=== PATIENT | male | born 1940 | race Caucasian/White ===

== ENCOUNTER 2017-08-12 01:37 | Emergency (ER) | payer MEDICARE, OTHER ==
[~2017-08-12] VITALS: Ht 175.3 cm; Wt 90.7 kg
[2017-08-12] MEDS ORDERED: ASPI81TA31 PO (01:47)
--- NOTE | 2017-08-12 01:51 | NUR ---
PT BIB [facility], PATIENT TAKES PRESCRPTION MEDICATION, AWAITING LIST FROM FAMILY MEMBER.
--- NOTE | 2017-08-12 02:02 | NUR ---
DR NITHIN MONROY MD AT BEDSIDE FOR MSE.
--- NOTE | 2017-08-12 02:10 | NUR ---
PT TAKEN TO CT VIA GURNEY. NO DISTRESS NOTED. ACCOMPANIED BY .
[2017-08-12] MEDS ORDERED: NEOMY/BACITRA/POLYMYXIN B OINT UD PACKET TP ONE ×2 (02:15)
--- NOTE | 2017-08-12 02:15 | NUR ---
LAB AT BEDSIDE FOR BLOOD DRAW.
[2017-08-12] MEDS ORDERED: LIDOCAINE 1%-EPI 1:100,000 20 ML VIAL TP ONE (02:45)
[2017-08-12 02:48] LABS: BASOPHILS # (AUTO) 0.1 K/uL (0.0-8.0); BASOPHILS % (AUTO) 0.7 % (0.0-2.0); EOSINOPHILS # (AUTO) 0.3 K/uL (0.0-0.7); EOSINOPHILS % (AUTO) 3.7 % (0.0-7.0); HEMATOCRIT 48.2 % (36.7-47.1); HEMOGLOBIN 16.4 g/dL (12.5-16.3); LYMPHOCYTES # (AUTO) 1.2 K/uL (20.0-40.0); LYMPHOCYTES % (AUTO) 14.6 % (20.5-51.5); MEAN CORPUSCULAR HEMOGLOBIN 31.3 uug (23.8-33.4); MEAN CORPUSCULAR HGB CONC 34 g/dL (32.5-36.3); MEAN CORPUSCULAR VOLUME 92.1 fL (73.0-96.2); MONOCYTES # (AUTO) 1.1 K/uL (2.0-10.0); MONOCYTES % (AUTO) 12.9 % (0.0-11.0); NEUTROPHILS # (AUTO) 5.7 K/uL (1.8-8.9); NEUTROPHILS % (AUTO) 68.1 % (38.5-71.5); PLATELET COUNT (AUTO) 134 K/uL (152-348); RED BLOOD CELL COUNT(AUTO) 5.24 MIL/uL (4.06-5.63); WHITE BLOOD COUNT (AUTO) 8.4 K/uL (3.6-10.2)
[2017-08-12 02:58] LABS: CARBON DIOXIDE 26 mmol/L (21-32); CHLORIDE 104 mmol/L (98-107); CREATININE 1.5 mg/dL (0.6-1.3); GLUCOSE 110 mg/dL (74-106); UREA NITROGEN, BLOOD 43 mg/dL (7-18)
[2017-08-12] MEDS ORDERED: IV NORMAL SALINE 500 ML BAG IV ONE (03:30)
--- NOTE | 2017-08-12 03:55 | NUR ---
Patient discharged to home in stable conditon. Written and verbal after care instructions given. Patient verbalizes understanding of instructions. Pt taken to car via wheelchair. states she will help PT get from car to house. No acute distress at this time.
[2017-08-12 04:13] VITALS: BP 134/68
== END 2017-08-12 04:13 | disposition home or self-care (01) ==
LOC: ER 01:46
DX: S01.81XA Laceration without foreign body of other part of head, initial encounter (principal); E86.0 Dehydration; D69.6 Thrombocytopenia, unspecified; I10 Essential (primary) hypertension; E03.9 Hypothyroidism, unspecified; G89.29 Other chronic pain; F17.210 Nicotine dependence, cigarettes, uncomplicated; Z79.82 Long term (current) use of aspirin; W19.XXXA Unspecified fall, initial encounter; Y93.89 Activity, other specified; Y92.89 Other specified places as the place of occurrence of the external cause; Y99.8 Other external cause status
CPT/HCPCS: 36415; 70450; 72125; 85025; 85730; 93005; A4217; A4663; J3490

== ENCOUNTER 2017-09-21 12:35 | Emergency (ER) | payer MEDICARE, OTHER ==
[~2017-09-21] VITALS: Ht 175.3 cm; Wt 90.7 kg
[~2017-09-21 12:35] MED LIST: ASPI81TA31 PO
[2017-09-21] MEDS ORDERED: LIDOCAINE 1%-EPI 1:100,000 20 ML VIAL ONE (12:44)
[2017-09-21] MEDS ORDERED: LIDOCAINE 1%-EPI 1:100,000 20 ML VIAL TP ONE (12:45)
--- NOTE | 2017-09-21 12:48 | NUR ---
PT IS IN ROOM #2A. DR CHAPARRO EVALUATED THE PT.
[2017-09-21] MEDS ORDERED: NEOMY/BACITRA/POLYMYXIN B OINT UD PACKET TP ONE ×2 (13:30→13:53)
--- NOTE | 2017-09-21 14:05 | NUR ---
pt was d/c to home. d/c instructions given to the pt by dr Johnson. no bleeding. dressing is intact.
[2017-09-21 14:07] VITALS: BP 145/79
== END 2017-09-21 14:08 | disposition home or self-care (01) ==
LOC: ER 12:39
DX: S01.81XA Laceration without foreign body of other part of head, initial encounter (principal); I10 Essential (primary) hypertension; F17.210 Nicotine dependence, cigarettes, uncomplicated; Z79.82 Long term (current) use of aspirin; W01.198A Fall on same level from slipping, tripping and stumbling with subsequent striking against other object, initial encounter; Y93.89 Activity, other specified; Y92.89 Other specified places as the place of occurrence of the external cause; Y99.8 Other external cause status
CPT/HCPCS: 13131; 70450; 72125; 99285; A4217; A4663; J3490

== ENCOUNTER 2018-05-28 17:06 | Emergency (ER) | payer MEDICARE, OTHER ==
[~2018-05-28] VITALS: Ht 175.3 cm; Wt 94.3 kg
[2018-05-28] MEDS ORDERED: ALBUTEROL SULFATE 2.5 MG/3 ML NEBU ONE (17:57)
[2018-05-28] MEDS ORDERED: IPRATROPIUM BROMIDE 0.5 MG/2.5 ML NEBU ONE (17:57)
[2018-05-28] MEDS ORDERED: ALBUTEROL SULFATE 2.5 MG/3 ML NEBU NEB ONE (18:00)
[2018-05-28] MEDS ORDERED: IPRATROPIUM BROMIDE 0.5 MG/2.5 ML NEBU NEB ONE (18:00)
--- NOTE | 2018-05-28 18:07 | NUR ---
PT IS IN ROOM #1B. DR MARIE EVALUATED THE PT.
[2018-05-28] MEDS ORDERED: AZITHROMYCIN IV 500 MG in IV DEXTROSE 5% 250 ML IV ONE (18:15)
[2018-05-28] MEDS ORDERED: CEFTRIAXONE 1 G in IV DEXTROSE 5% 50 ML IV ONE (18:15)
[2018-05-28 18:31] LABS: *BILIRUBIN,URIN NEGATIVE (NEGATIVE); *BLOOD, URINE NEGATIVE (NEGATIVE); *CLARITY,URINE CLEAR (CLEAR); *COLOR,URINE YELLOW (YELLOW); *KETONES,URINE NEGATIVE (NEGATIVE); LEUKOCYTE ESTERASE ,URINE NEGATIVE (NEGATIVE); NITRITE, URINE NEGATIVE (NEGATIVE); UGLUCOSE NEGATIVE (NEGATIVE)
[2018-05-28 18:39] LABS: WBC,URINE 0-3 /HPF (0-3)
[2018-05-28] MEDS ORDERED: CEFTRIAXONE 1 G VIAL ONE (18:52)
[2018-05-28 18:53] LABS: BASOPHILS # (AUTO) 0.1 K/uL (0.0-8.0); EOSINOPHILS # (AUTO) 0.3 K/uL (0.0-0.7); EOSINOPHILS % (AUTO) 3.6 % (0.0-7.0); HEMATOCRIT 43.2 % (36.7-47.1); HEMOGLOBIN 14.4 g/dL (12.5-16.3); LYMPHOCYTES # (AUTO) 1.3 K/uL (20.0-40.0); LYMPHOCYTES % (AUTO) 15.1 % (20.5-51.5); MEAN CORPUSCULAR HEMOGLOBIN 30.1 uug (23.8-33.4); MEAN CORPUSCULAR HGB CONC 33 g/dL (32.5-36.3); MONOCYTES % (AUTO) 11.5 % (0.0-11.0); NEUTROPHILS % (AUTO) 68.8 % (38.5-71.5); PLATELET COUNT (AUTO) 195 K/uL (152-348); RED BLOOD CELL COUNT(AUTO) 4.79 MIL/uL (4.06-5.63); WHITE BLOOD COUNT (AUTO) 8.7 K/uL (3.6-10.2)
[2018-05-28 19:00] LABS: CARBON DIOXIDE 27 mmol/L (21-32); CHLORIDE 105 mmol/L (98-107); CREATININE 1.4 mg/dL (0.6-1.3); GLUCOSE 99 mg/dL (74-106); POTASSIUM 4.2 mmol/L (3.5-5.1); UREA NITROGEN, BLOOD 26 mg/dL (7-18)
[2018-05-28 19:12] LABS: ALANINE AMINOTRANSFERASE 34 U/L (16-63); ALKALINE PHOSPHATASE 100 U/L (50-136); ASPARTATE AMINOTRANSFERASE 32 U/L (15-37); BILIRUBIN,DIRECT 0.1 mg/dL (0.0-0.2); BILIRUBIN,TOTAL 0.4 mg/dL (0.2-1.0); LIPASE 141 U/L (73-393); TOTAL PROTEIN, SERUM 6.4 g/dL (6.4-8.2)
--- NOTE | 2018-05-28 19:13 | NUR ---
Assumed care of pt at this time. Pt back from radiology dept placed back in room 1B. Pt's caregiver at bedside. AAOx3. IV antibiotics infusing.
--- NOTE | 2018-05-28 19:22 | NUR ---
REPORT WAS GIVEN TO TRACTOR OPERATOR BATTERY RN.
[2018-05-28] MEDS ORDERED: AZITHROMYCIN 500 MG VIAL IV ONE (19:28)
--- NOTE | 2018-05-28 19:57 | NUR ---
Pt waiting for IV azithromycin infusion to end. Pt states he wants to go home. ER MD spoke with pt & . Pt states he feels better. VSS.
--- NOTE | 2018-05-28 20:29 | NUR ---
Patient discharged to home in stable conditon. Written and verbal after care instructions given. Patient verbalizes understanding of instructions. Pt left via wheelchair w and caregiver. Pt states he feels better and is ready to go home. All belongings with pt. VSS. CHLOE bernard.
--- NOTE | 2018-05-28 20:29 | NUR ---
IV removed. Catheter intact and site benign. Pressure and 4x4 gauze applied to site. No bleeding noted.
[2018-05-28 20:31] VITALS: BP 126/65
== END 2018-05-28 20:31 | disposition home or self-care (01) ==
LOC: ER 17:07
DX: J44.1 Chronic obstructive pulmonary disease with (acute) exacerbation (principal); J18.9 Pneumonia, unspecified organism; I10 Essential (primary) hypertension; F17.200 Nicotine dependence, unspecified, uncomplicated; Z79.82 Long term (current) use of aspirin
CPT/HCPCS: 36415; 71045; 74176; 80048; 80076; 81001; 83690; 84484; 85025; 85730; 87086; 93005 ×2; 94640; 96365; 96367; 99284; J0456; J0696; J7060; 70030-TC; A4663; J3490; J3590